=== PATIENT | male | born 1955 ===

== ENCOUNTER 2023-06-29 11:15 | Outpatient (RCR) | payer OTHER | END 2023-07-02 | disposition home or self-care (01) | LOC: WSPT | DX: N32.81 Overactive bladder (principal) ==

== ENCOUNTER 2023-07-03 09:36 | Outpatient (RCR) | payer OTHER | END 2023-08-01 | disposition home or self-care (01) | LOC: WSPT | DX: N32.81 Overactive bladder (principal); N40.0 Benign prostatic hyperplasia without lower urinary tract symptoms; M54.50 Low back pain, unspecified; N52.9 Male erectile dysfunction, unspecified; F10.20 Alcohol dependence, uncomplicated ==

== ENCOUNTER → 2023-12-02 | Outpatient (RCR) | payer OTHER | LOC: WSPT | DX: M54.31 Sciatica, right side (principal) ==

== ENCOUNTER 2024-01-15 10:30 | Outpatient (RCR) | payer OTHER | END 2024-01-31 | disposition home or self-care (01) | LOC: WSPT | DX: M48.061 Spinal stenosis, lumbar region without neurogenic claudication (principal); M24.28 Disorder of ligament, vertebrae; M51.16 Intervertebral disc disorders with radiculopathy, lumbar region; M47.22 Other spondylosis with radiculopathy, cervical region ==